=== PATIENT | female | born 1980 | race Caucasian/White ===

== ENCOUNTER → 2020-09-07 15:13 | Outpatient (CLI) | payer OTHER, SELFPAY ==
--- NOTE | 2020-09-07 | DI.CT.S_ITS ---
PROCEDURE: CT SINUS SCREEN WO CON INDICATIONS: Chronic pansinusitis TECHNIQUE: Noncontrast 3.0 mm axial images acquired from the frontal sinuses to the mid-sella, with coronal and sagittal reformats. For radiation dose reduction, the following was used: automated exposure control, adjustment of mA and/or kV according to patient size. COMPARISON: None. FINDINGS: Image quality: Excellent. Maxillary Sinuses: No bony remodeling or destruction. Right maxillary sinus retention cyst. Moderate right maxillary sinus debris. Left maxillary sinus patent. Ethmoid Air Cells: No bony remodeling or destruction. Bilateral ethmoidectomy. Sphenoid Sinuses: No bony remodeling or destruction. Sinuses are clear. Frontal Sinuses: No bony remodeling or destruction. Sinuses are clear. Ostiomeatal Complexes: Bilateral antrectomies have been performed, which are patent. No Payal cells. Miscellaneous: Visualized intra-orbital contents are normal. No yan bullosa . Partial paradoxical curvature of the left middle turbinates. No nasal septal deviation. IMPRESSION: 1. Postsurgical sequelae. 2. Acute on chronic right maxillary sinus disease. 3. Partial paradoxical curvature of the left middle turbinates. Dictated by: Edin De Leon M.D. on 09/07/2020 at 16:41 Approved by: Edin De Leon M.D. on 09/07/2020 at 16:42
== END ==
PROVIDERS: PCP Family Medicine; Referring Provider Otolaryngology; Visit Provider Otolaryngology
DX: J32.4 Chronic pansinusitis (principal); J01.00 Acute maxillary sinusitis, unspecified; R51.9 Headache, unspecified; G96.00 Cerebrospinal fluid leak, unspecified; J34.89 Other specified disorders of nose and nasal sinuses
CPT/HCPCS: 70486